=== PATIENT | female | born 1970 | race Caucasian/White ===

== ENCOUNTER 2021-12-06 16:34 | Outpatient (CLI) | payer BC, SELFPAY ==
--- NOTE | ~2021-12-06 | XR_ITS ---
EXAMINATION: XR mandible min 4V EXAM DATE: 12/06/2021 17:11 INDICATION: R68.84 - Jaw pain X 1month,Lt Side. TECHNIQUE: Mandible frontal, temporomandibular joint, bilateral lateral projections with tilt. Ther e is no prior study for comparison. FINDINGS: No appreciable osteoarthritis identified of either temporal mandibular joint. No fracture or dislocation. Mild upper cervical spondylosis. IMPRESSION: Unremarkable mandible, temporal mandibular joints. Reviewed, dictated and finalized at location A. GENCY DEPARTMENT RN
--- NOTE | ~2021-12-06 | XR_ITS ---
EXAMINATION: XR sinus min 3V EXAM DATE: 12/06/2021 17:11 INDICATION: R68.84 - Jaw pain,Lt Side X 1 Month TECHNIQUE: Frontal, Ck's open-mouth and closed mouth, lateral and submentovertex projections of t he paranasal sinuses. There are no prior studies for comparison. FINDINGS: Sinuses appear well-aerated. Please note that mild mucoperiosteal thickening may not be det ected on x-ray. No sinus air-fluid levels on the submentovertex projection. Nasal septum is midline. IMPRESSION: Unremarkable sinus x-ray exam Reviewed, dictated and finalized at location A. ICAL TRIALS MANAGER
[2021-12-06 17:56] LABS: LDL Cholesterol Direct 158 mg/dL
[2021-12-06 17:57] LABS: Alanine Aminotransferase 25 U/L (4-35); Albumin Level 4.5 g/dL (3.5-5.1); Alkaline Phosphatase 104 U/L (38-126); Anion Gap 12 mmol/L (8-16); Aspartate Amino Transferase 34 U/L (14-36); Bilirubin,Total 0.5 mg/dL (0.2-1.3); Blood Urea Nitrogen 13 mg/dL (7-17); Calcium 9.2 mg/dL (8.4-10.2); Carbon Dioxide 24 mmol/L (22-30); Chloride 105 mmol/L (98-107); Cholesterol 245 mg/dL (0-200); Estimated Glomerular Filt Rate > 60; Glucose 111 mg/dL (65-110); HDL Direct 49 mg/dL; Potassium 4.7 mmol/L (3.4-5.0); Sodium 141 mmol/L (137-145); Triglycerides 160 mg/dL (<150)
[2021-12-06 18:00] LABS: Basophils Percent Auto 0.4 % (0.2-1.2); Eosinophils Absolute Auto 0.3 K/mm3 (0-0.3); Eosinophils Percent Auto 3.1 % (0-4.4); Hematocrit 40.1 % (37.0-47.0); Hemoglobin 12.6 g/dL (12.0-15.0); Immature Granulocyte Absolute 0.06 K/mm3 (0.00-0.031); Immature Granulocyte Percent A 0.6 % (0-0.5); Lymphocytes Absolute Auto 3.09 K/mm3 (0.9-3.2); Lymphocytes Percent Auto 30.7 % (18.3-44.2); Mean Corpuscular HGB Conc 31.4 g/dl (32-36); Mean Corpuscular Hemoglobin 28.1 pg (26-34); Mean Corpuscular Volume 89.5 fl (80-100); Monocytes Absolute Auto 0.6 K/mm3 (0.1-0.6); Monocytes Percent Auto 6.2 % (2.6-8.5); Neutrophils Absolute Auto 5.9 K/mm3 (1.3-6.7); Platelet Count Result 238 k/mm3 (150-375); Red Blood Count 4.48 M/mm3 (4.2-5.4); Red Cell Distribution Width 14.3 % (11.5-14.5); White Blood Count 10.1 K/mm3 (4.5-10.0)
== END 2021-12-06 16:35 | disposition home or self-care (01) ==
LOC: ANHIMG 16:41
PROVIDERS: PCP Family Medicine; Visit Provider Nurse Practitioner Family
DX: R68.84 Jaw pain (principal); R93.89 Abnormal findings on diagnostic imaging of other specified body structures; R03.0 Elevated blood-pressure reading, without diagnosis of hypertension; Z13.29 Encounter for screening for other suspected endocrine disorder; Z13.220 Encounter for screening for lipoid disorders
CPT/HCPCS: 36415; 70110; 70220; 80053; 80061; 84443; 85025

== ENCOUNTER 2021-12-15 06:36 | Outpatient (CLI) | payer BC, SELFPAY ==
--- NOTE | ~2021-12-15 | CT_ITS ---
EXAMINATION: CT brain & sinus wo con EXAM DATE: 12/15/2021 07:22 INDICATION: R51.9 - Headache, unspecified. Ear infection. Tonsillitis. TECHNIQUE: Spiral CT of the head obtained without contrast. Reformatted coronal, sagittal images rev iewed. Spiral CT of the sinuses was acquired in the axial plane. Coronal and sagittal reformatted im ages were also reviewed. The dose-length product (DLP) for this examination was 605.33 mGy-cm. The exposure was tailored according to patient size, and iterative reconstruction (ASIR) was used as sarah tional dose reduction technique. There is no prior study for comparison. FINDINGS: SINUS CT: The sinuses are normally developed. Mild bilateral maxillary and ethmoid mucoperiosteal t hickening, minimal in the sphenoid sinuses. No sinus air-fluid levels. The right ostiomeatal unit is narrowed but patent. There is no sinus wall thickening. There is moderate rightward nasal septal deviation. The middle ears are well aerated. The inferior air cells of the right mastoid are opacif ied, effusion. External auditory canals are patent. Soft tissue is unremarkable. HEAD CT: Low-lying cerebellar tonsils not meeting criteria for Chiari I malformation. Empty sella tur cica, herniation of CSF into the sella turcica. There is no acute intraparenchymal hemorrhage. No ev idence of intraparenchymal brain mass lesion. No evidence of acute infarction. There is no mass effe ct or midline shift. There is no obstructive hydrocephalus suspected. There are no extra-axial colle ctions. There are no calvarial acute fractures. IMPRESSION: 1. No acute intracranial findings. 2. Mild mucoperiosteal thickening. 3. Small right mastoid effusion. 4. Moderate rightward nasal septal deviation. Reviewed, dictated and finalized at location A. AL GENETICIST
--- NOTE | ~2021-12-15 | CT_ITS ---
EXAMINATION: CT soft tissue neck wo con EXAM DATE: 12/15/2021 07:22 INDICATION: J03.80 - Acute tonsillitis due to other specified organisms . TECHNIQUE: Spiral CT of the neck was performed without contrast. Axial, coronal and sagittal images were reviewed. The dose-length product (DLP) for this examination was 461.85 mGy-cm. The exposure was tailored according to patient size (auto mA exposure control), and iterative reconstruction (ASIR ) was used as additional dose reduction technique. Correlation is made to brain and sinus CT same damian e. FINDINGS: The thyroid gland is unremarkable. The submandibular and parotid glands are symmetric. Mildly enlarged left palatine tonsil. No evidence of decreased tonsil density, tonsillar necrosis or abscess. Largest cervical lymph node is left internal jugular chain level 2 lymph node measuring 1.2 x 1.5 cm, mildly enlarged. Others are within normal size limits. The superior mediastinum is unrema rkable. The airway is unremarkable. Parapharyngeal and pre-glottic fat planes are preserved. Tracey ware evaluation of cervical vessels on this noncontrast study. Mild maxillary sinus mucoperiosteal thickening, small amount of fluid in the right mastoid inferior air cells. Moderate lower cervical d isc disease. Mild to moderate cervical arthropathy. There is mosaic attenuation involving both upper lobes. This is suspected to be most likely due to ex piratory phase of imaging. Differential diagnosis for this includes air trapping (asthma, bronchioli tis obliterans), vasculitis, or groundglass opacity. Groundglass opacity can be caused acutely by ed dina, infection (PCP in an immunocompromised patients) or hemorrhage. It can also be caused by chroni c processes such as hypersensitivity pneumonitis, nonspecific interstitial pneumonitis (NSIP), crypto genic organized pneumonia, desquamative interstitial pneumonitis(DIP). IMPRESSION: 1. Mildly enlarged left palatine tonsil and adjacent internal jugular chain lymph node, probably donnie ctive. 2. Lung apical was a attenuation probably air trapping. Reviewed, dictated and finalized at location A. R MACHINE OFFBEARER IMPRESSION: 1. Mildly enlarged left palatine tonsil and adjacent internal jugular chain ly mph node, probably reactive. 2. Lung apical was a attenuation probably air trapping.
== END 2021-12-15 06:37 | disposition home or self-care (01) ==
LOC: ANHIMG 06:42
PROVIDERS: PCP Family Medicine; Visit Provider Nurse Practitioner Family
DX: J03.80 Acute tonsillitis due to other specified organisms (principal); B96.89 Other specified bacterial agents as the cause of diseases classified elsewhere; R93.89 Abnormal findings on diagnostic imaging of other specified body structures; R51.9 Headache, unspecified; R68.84 Jaw pain
CPT/HCPCS: 70450; 70486; 70490

== ENCOUNTER 2024-02-01 08:24 | Outpatient (CLI) | payer BC, SELFPAY ==
[2024-02-01 08:49] LABS: Hematocrit 39.8 % (37.0-47.0); Hemoglobin 11.9 g/dL (12.0-15.0); Mean Corpuscular HGB Conc 29.9 g/dl (32-36); Mean Corpuscular Hemoglobin 28.1 pg (26-34); Mean Corpuscular Volume 93.9 fl (80-100); Mean Platelet Volume 11.1 fl (7.4-10.4); Platelet Count Result 207 k/mm3 (150-375); Red Blood Count 4.24 M/mm3 (4.2-5.4); Red Cell Distribution Width 14.1 % (11.5-14.5); White Blood Count 8.3 K/mm3 (4.5-10.0)
[2024-02-01 09:08] LABS: Alanine Aminotransferase 20 U/L (6-35); Albumin Level 3.9 g/dL (3.5-5.1); Alkaline Phosphatase 94 U/L (38-126); Anion Gap 2 mmol/L (8-16); Aspartate Amino Transferase 21 U/L (14-36); Bilirubin,Total 0.6 mg/dL (0.2-1.3); Blood Urea Nitrogen 9 mg/dL (7-17); Calcium 8.8 mg/dL (8.4-10.2); Carbon Dioxide 33 mmol/L (22-30); Chloride 106 mmol/L (98-107); Cholesterol 196 mg/dL (0-200); Estimated Glomerular Filt Rate > 60; Glucose 93 mg/dL (65-110); HDL Direct 44 mg/dL; Potassium 3.8 mmol/L (3.4-5.0); Sodium 141 mmol/L (137-145); Triglycerides 69 mg/dL (<150)
[2024-02-01 09:20] LABS: LDL Cholesterol Direct 128 mg/dL
[2024-02-01 10:31] LABS: Vitamin D 25 Hydroxy < 12.8 ng/mL
== END 2024-02-01 08:25 | disposition home or self-care (01) ==
PROVIDERS: PCP Family Medicine; Visit Provider Nurse Practitioner Family
DX: R03.0 Elevated blood-pressure reading, without diagnosis of hypertension (principal); E55.9 Vitamin D deficiency, unspecified; Z13.220 Encounter for screening for lipoid disorders; Z68.44 Body mass index [BMI] 60.0-69.9, adult
CPT/HCPCS: 36415; 80053; 80061; 82306; 84443; 85027

== ENCOUNTER 2024-02-07 16:13 | Outpatient (CLI) | payer BC, SELFPAY ==
[2024-02-07 16:28] LABS: Hematocrit 38.6 % (37.0-47.0); Hemoglobin 11.6 g/dL (12.0-15.0); Mean Corpuscular HGB Conc 30.1 g/dl (32-36); Mean Corpuscular Volume 93.2 fl (80-100); Mean Platelet Volume 10.5 fl (7.4-10.4); Platelet Count Result 197 k/mm3 (150-375); Red Blood Count 4.14 M/mm3 (4.2-5.4); Red Cell Distribution Width 13.8 % (11.5-14.5); White Blood Count 8.5 K/mm3 (4.5-10.0)
[2024-02-07 16:43] LABS: Anion Gap 4 mmol/L (8-16); Blood Urea Nitrogen 11 mg/dL (7-17); Calcium 8.9 mg/dL (8.4-10.2); Carbon Dioxide 32 mmol/L (22-30); Chloride 106 mmol/L (98-107); Estimated Glomerular Filt Rate > 60; Glucose 103 mg/dL (65-110); Potassium 3.4 mmol/L (3.4-5.0); Sodium 142 mmol/L (137-145)
[2024-02-07 17:30] LABS: Iron 56 ug/dL (37-170)
[2024-02-07 17:39] LABS: Percent Iron Saturation 13 % (20-50)
[2024-02-07 19:17] LABS: Vitamin D 25 Hydroxy < 12.8 ng/mL
== END 2024-02-07 16:14 | disposition home or self-care (01) ==
LOC: ANHLAB 16:15
PROVIDERS: PCP Family Medicine; Visit Provider Nurse Practitioner Family
DX: D64.9 Anemia, unspecified (principal); E55.9 Vitamin D deficiency, unspecified; N28.9 Disorder of kidney and ureter, unspecified
CPT/HCPCS: 36415; 80048; 82306; 83540; 83550; 85027

== ENCOUNTER 2024-11-13 07:40 | Outpatient (CLI) | payer BC, SELFPAY ==
[2024-11-13 08:51] LABS: Alanine Aminotransferase 19 U/L (6-35); Alkaline Phosphatase 74 U/L (38-126); Anion Gap 3 mmol/L (4-12); Aspartate Amino Transferase 25 U/L (14-36); Bilirubin,Total 0.6 mg/dL (0.2-1.3); Blood Urea Nitrogen 12 mg/dL (7-17); Calcium 8.8 mg/dL (8.4-10.2); Carbon Dioxide 34 mmol/L (22-30); Chloride 103 mmol/L (98-107); Estimated Glomerular Filt Rate > 60; Glucose 97 mg/dL (65-110); Potassium 4.1 mmol/L (3.4-5.0); Sodium 140 mmol/L (137-145)
[2024-11-13 09:16] LABS: Basophils Absolute Auto 0.1 K/mm3 (0.0-0.1); Basophils Percent Auto 0.9 % (0.2-1.2); Eosinophils Absolute Auto 0.3 K/mm3 (0-0.3); Eosinophils Percent Auto 4.7 % (0-4.4); Hematocrit 41.3 % (37.0-47.0); Hemoglobin 12.4 g/dL (12.0-15.0); Immature Granulocyte Absolute 0.05 K/mm3 (0.00-0.031); Immature Granulocyte Percent A 0.8 % (0-0.5); Lymphocytes Absolute Auto 1.78 K/mm3 (0.9-3.2); Lymphocytes Percent Auto 27.1 % (18.3-44.2); Mean Corpuscular Hemoglobin 27.9 pg (26-34); Mean Corpuscular Volume 92.8 fl (80-100); Monocytes Absolute Auto 0.5 K/mm3 (0.1-0.6); Monocytes Percent Auto 7.8 % (2.6-8.5); Neutrophils Absolute Auto 3.9 K/mm3 (1.3-6.7); Neutrophils Percent Auto 58.7 % (45.5-73.1); Platelet Count Result 212 k/mm3 (150-375); Red Blood Count 4.45 M/mm3 (4.2-5.4); Red Cell Distribution Width 14.6 % (11.5-14.5); White Blood Count 6.6 K/mm3 (4.5-10.0)
[2024-11-13 11:23] LABS: Vitamin D 25 Hydroxy < 12.8 ng/mL
== END 2024-11-13 07:41 | disposition home or self-care (01) ==
LOC: ANHLAB 07:42
PROVIDERS: PCP Family Medicine
DX: E55.9 Vitamin D deficiency, unspecified (principal); R60.9 Edema, unspecified; D64.9 Anemia, unspecified; R53.83 Other fatigue
CPT/HCPCS: 36415; 80053; 82306; 85025